=== PATIENT | male | born 1955 | race Caucasian/White ===

== ENCOUNTER 2016-08-06 16:37 | Emergency (ER) | payer OTHER ==
[~2016-08-06] VITALS: Ht 172.7 cm; Wt 82.6 kg
[~2016-08-06 16:37] MED LIST: AMBIEN10 MG PO; BUPROPION HCL150 MG PO; DESYREL100 MG PO; MIRTAZAPINE30 MG PO; NKHM; PROPRANOLOL HCL20 MG PO; TAMSULOSIN HYD0.4 MG PO; VIBRAMYCIN100 MG PO; VICODIN1 TAB PO
[2016-08-06 16:45] VITALS: BP 185/104
[2016-08-06] MEDS ORDERED: NAPROSYN500 MG PO (16:50)
== END 2016-08-06 17:56 | disposition home or self-care (01) ==
LOC: ED 16:37
DX: S63.502A Unspecified sprain of left wrist, initial encounter (principal); R03.0 Elevated blood-pressure reading, without diagnosis of hypertension; Z79.899 Other long term (current) drug therapy; X58.XXXA Exposure to other specified factors, initial encounter; Y93.89 Activity, other specified; Y92.9 Unspecified place or not applicable; Y99.9 Unspecified external cause status

== ENCOUNTER → 2016-09-06 | Outpatient (CLI) | payer OTHER ==
[~2016-09-06] MED LIST changes: +NAPROSYN500 MG PO
== END | disposition home or self-care (01) ==
LOC: RAD 16:02
DX: M25.78 Osteophyte, vertebrae (principal); R53.1 Weakness

== ENCOUNTER → 2023-11-30 | Outpatient (CLI) | payer OTHER | END | disposition home or self-care (01) | LOC: LAB 10:41 | PROVIDERS: ATTEND Internal Medicine | DX: R06.00 Dyspnea, unspecified (principal); R53.1 Weakness; R68.89 Other general symptoms and signs ==

== ENCOUNTER → 2023-12-05 | Outpatient (CLI) | payer OTHER | END | disposition home or self-care (01) | LOC: LAB 01:00 | PROVIDERS: ATTEND Nurse Practitioner Family | DX: R19.7 Diarrhea, unspecified (principal) ==